=== PATIENT | male | born 1970 | race Caucasian/White ===

== ENCOUNTER → 2018-01-30 | Outpatient (CLI) | payer OTHER ==
[~2018-01-30] MED LIST: FARXIGA PO; IOPAMIDOL 370 MG/ML 200 ML INFUS..BTL INJ ONE; LIPITOR20 MG PO; LISINOPRIL-HCT1 EACH PO; LISINOPRIL/HCTZ PO; METOPROLOL TART50 MG PO; SODIUM CHLORIDE 0.9% 50ML 50 ML ONE
[2018-01-30 11:39] LABS: BLOOD UREA NITROGEN 22 mg/dL (7-26); BUN/CREATININE RATIO 23 (6-25); CREATININE, SERUM 0.96 mg/dL (0.72-1.25); EST GLOMERULAR FILTRATION RATE > 60 ML/MIN (60-)
--- NOTE | 2018-01-30 13:07 | Diagnostic Imaging Report ---
PROCEDURE: CT ABDOMEN AND PELVIS WITH CONTRAST TECHNIQUE: The abdomen and pelvis were scanned utilizing a multidetector helical scanner from the diaphragm to the lesser trochanter after the IV administration of 100 cc of Isovue 370 and the oral administration of water. Coronal and sagittal multiplanar reformations were obtained. COMPARISON: None. INDICATIONS: UPPER ABD PAIN FINDINGS: LOWER THORAX: Unremarkable. HEPATOBILIARY: 1.1 x 1.1 cm low density simple cyst in hepatic segment VII at the dome (series 2 image 13). No other focal lesions. No biliary ductal dilation. Gallbladder is unremarkable. SPLEEN: No splenomegaly. PANCREAS: Normal pancreatic parenchymal enhancement. No peripancreatic inflammatory changes, free fluid or fluid collections. No focal lesions or ductal dilation. ADRENALS: No adrenal nodules. KIDNEYS/URETERS: No hydronephrosis, stones, or solid mass lesions. PELVIC ORGANS/BLADDER: Bladder and prostate are unremarkable. PERITONEUM / RETROPERITONEUM: Trace to small perihepatic and perisplenic ascites (series 2, image 19). Small amount of free fluid in the pelvis (for example series 2, image 87). LYMPH NODES: No lymphadenopathy. VESSELS: Unremarkable. GI TRACT: Multiple loops of jejunum and proximal ileum show mild to moderate dilation, with maximal diameter of 4.4 cm (for example, coronal image 44 and series 2, image 41). A transition point to decompressed bowel is noted in the mid ileum (coronal image 63 and sagittal image 84). No focal mass or wall thickening is noted At this location. The rest of the mid and distal small bowel as well the large bowel are decompressed. Questionable wall of the mid-distal ileum. Moderate associated mesenteric stranding and small amount of fluid in the mesenteric leaves. Moderate stranding with mild nodularity of the omentum (for example series 2, image 52). Stomach is unremarkable. BONES AND SOFT TISSUES: No aggressive lytic lesion. Soft tissues are grossly unremarkable. IMPRESSION: 1. Multiple loops of mild to moderately dilated jejunum and proximal ileum, with transition point in the mid ileum to normal-caliber bowel, with associated mesenteric stranding and small amount of mesenteric free fluid and ascites. Findings suggestive of enteritis, which may be infectious or inflammatory (including inflammatory bowel disease such as Crohn's). No prior surgical history to suggest adhesions. The large bowel is grossly unremarkable, without dilation, wall thickening or associated stranding. 2. Moderate stranding and mild nodularity of the omentum. This may be secondary to omental edema and inflammation from adjacent bowel loops. Neoplastic peritoneal disease may have similar appearance, and could be considered if there is prior history of primary neoplasm. 3. No CT evidence of pancreatitis. 4. Findings discussed with Dr. Juan Melgoza January 30, 2018 at 1240 hrs. Roe Candelario M.D. Dictated by: Roe Candelario M.D. on 01/30/2018 at 13:07 Electronically approved by: Roe Candelario M.D. on 01/30/2018 at 13:07
== END ==
LOC: CT 10:38
PROVIDERS: ATTEND Family Medicine
DX: R10.84 Generalized abdominal pain (principal)
CPT/HCPCS: 36415; 74177; 82565; 84520; Q9967

== ENCOUNTER → 2018-02-02 | Day surgery (SDC) | payer OTHER ==
[2018-02-01 15:15] LABS: BASOPHILS % 0.4 % (0.0-1.0); EOSINOPHILS # (AUTO) 0.1 (0.0-0.4); HEMATOCRIT 43.8 % (38.2-49.6); LYMPHOCYTES # (AUTO) 1.5 (1.0-3.2); LYMPHOCYTES % 15.6 % (18.0-39.1); MEAN CORPUSCULAR HEMOGLOBIN 29.4 pg (28-32); MEAN CORPUSCULAR HGB CONC 34.2 g/dL (31-35); MEAN CORPUSCULAR VOLUME 85.7 fL (81-99); MONOCYTES # (AUTO) 0.8 (0.2-0.8); MONOCYTES % 7.7 % (4.4-11.3); NEUTROPHILS # (AUTO) 7.4 (2.1-6.9); PLATELET COUNT 366 x10e3/uL (140-360); RED BLOOD COUNT 5.11 x10e6/uL (4.3-5.7); RED CELL DISTRIBUTION WIDTH 12.7 % (11.7-14.4)
--- NOTE | 2018-02-01 15:37 | Diagnostic Imaging Report ---
PROCEDURE: Frontal and lateral views of the chest. COMPARISON: None. INDICATIONS: PRE OPERATIVE CHEST X-RAY FOR COLONOSCOPY, EGD FINDINGS: Lines/tubes: None. Lungs: The lungs are well inflated and clear. There is no evidence of pneumonia or pulmonary edema. Pleura: There is no pleural effusion or pneumothorax. Heart and mediastinum: The heart and the mediastinum are normal. Bones: No acute bony abnormality. IMPRESSION: 1. No acute cardiopulmonary abnormalities. Roe Candelario M.D. Dictated by: Roe Candelario M.D. on 02/01/2018 at 15:37 Electronically approved by: Roe Candelario M.D. on 02/01/2018 at 15:37
[2018-02-01 15:41] LABS: ALANINE AMINOTRANSFERASE 33 IU/L (0-55); ALBUMIN 3.9 g/dL (3.5-5.0); ALKALINE PHOSPHATASE 51 IU/L (40-150); ANION GAP 18.8 mmol/L (8-16); BLOOD UREA NITROGEN 16 mg/dL (7-26); BUN/CREATININE RATIO 18 (6-25); CALCIUM 9.5 mg/dL (8.4-10.2); CARBON DIOXIDE 24 mmol/L (22-29); CHLORIDE 92 mmol/L (98-107); CREATININE, SERUM 0.87 mg/dL (0.72-1.25); EST GLOMERULAR FILTRATION RATE > 60 ML/MIN (60-); GLUCOSE 82 mg/dL (74-118); POTASSIUM 3.8 mmol/L (3.5-5.1); SODIUM 131 mmol/L (136-145)
[~2018-02-02] MED LIST changes: +FENTANYL CITRATE/PF 100MCG/2 ML INJ ONE; -IOPAMIDOL 370 MG/ML 200 ML INFUS..BTL INJ ONE; +MIDAZOLAM HCL 2 MG/2 ML VIAL ONE; +PROPOFOL IV EMULSION 10 MG/ML 20 ML VIAL ONE; -SODIUM CHLORIDE 0.9% 50ML 50 ML ONE
--- OUTSIDE RECORDS SUMMARY | 2018-02-02 10:18 | XMS REPORT ---
Author Author [facility] Address Unknown Phone Unavailable Care Team Providers Care [place] Clerk Name Role Phone RAE SANCHEZ Unavailable Unavailable MERVAT MELGOZA Unavailable Unavailable Problems This patient has no known problems. Allergies, Adverse Reactions, Alerts This patient has no known allergies or adverse reactions. Medications This patient has no known medications. Results Test Description Test Time Test Comments Text Results Atomic Results Result Comments CHEST 2 VIEWS [place] [address] Patient Name: MERVAT CAO MR #: [id number] : 1970 Age/Sex: 47/M Req #: [id number] [facility] Physician: Ordered by: RAE SANCHEZ MD Report #: [id number] Location: OR Room/Bed: Procedure: [id number] DX/CHEST 2 VIEWS Exam Date: 02/01/18 Exam Time : 1500 REPORT STATUS: Signed PROCEDURE: Frontal and lateral views of the chest. COMPARISON: None. INDICATIONS: PRE OPERATIVE CHEST X- RAY FOR COLONOSCOPY, EGD FINDINGS: Lines/tubes: None. Lungs: The lungs are well inflated and clear. There is no evidence of pneumonia or pulmonary edema. Pleura: There is no pleural effusion or pneumothorax. Heart and mediastinum: The heart and the mediastinum are normal. Bones: No acute bony abnormality. IMPRESSION: 1. No acute cardiopulmonary abnormalities. Jovani Candelario M.D. Dictated by: Jovani Candelario M.D. on 02/01/2018 at 15:37 Electronically approved by: Jovani Candelario M.D. on 02/01/2018 at 15:37 Dictated By: JOVANI CANDELARIO MD 36 Transcribed By: YOSI on 02/01/181536 COPY TO: RAE SANCHEZ MD CT ABDOMEN/PELVIS W [place] [address] Patient Name: MERVAT CAO MR #: [id number] : 1970 Age/Sex: 47/M Req #: [id number] Adm Physician: Ordered by: MELGOZA ANDREW DO Report #: [id number] Location: CT Room/Bed: Procedure: [id number] CT/CT ABDOMEN/PELVIS W Exam Date: 01/30/18 Exam Time: 1200 REPORT STATUS: Signed PROCEDURE: CT ABDOMEN AND PELVIS WITH CONTRAST TECHNIQUE: The abdomen and pelvis were scanned utilizing a multidetector helical scanner from the diaphragm to the lesser trochanter after the IV administration of 100 cc of Isovue 370 and the oral administration of water. Coronal and sagittal multiplanar reformations were obtained. COMPARISON: None. INDICATIONS: UPPER ABD PAIN FINDINGS: LOWER THORAX: Unremarkable. HEPATOBILIARY: 1.1 x 1.1 cm low density simple cyst in hepatic segment VII at the dome (series 2 image 13). No other focal lesions. No biliary ductal dilation. Gallbladder is unremarkable. SPLEEN: No splenomegaly. PANCREAS: Normal pancreatic parenchymal enhancement. No peripancreatic inflammatory changes, free fluid or fluid collections. No focal lesions or ductal dilation. ADRENALS: No adrenal nodules. KIDNEYS/URETERS: No hydronephrosis, stones, or solid mass lesions. PELVIC ORGANS/BLADDER: Bladder and prostate are unremarkable. PERITONEUM / RETROPERITONEUM: Trace to small perihepatic and perisplenic ascites (series 2, image 19). Small amount of free fluid in the pelvis (for example series 2, image 87). LYMPH NODES: No lymphadenopathy. VESSELS: Unremarkable. GI TRACT: Multiple loops of jejunum and proximal ileum show mild to moderate dilation, with maximal diameter of 4.4 cm (for example, coronal image 44 and series 2, image 41). A transition point to decompressed bowel is noted in the mid ileum (coronal image 63 and sagittal image 84). No focal mass or wall thickening is noted At this location. The rest of the mid and distal small bowel as well the large bowel are decompressed. Questionable wall of the mid-distal ileum. Moderate associated mesenteric stranding and small amount of fluid in the mesenteric leaves. Moderate stranding with mild nodularity of the omentum (for example series 2, image 52 ). Stomach is unremarkable. BONES AND SOFT TISSUES: No aggressive lytic lesion. Soft tissues are grossly unremarkable. IMPRESSION: 1. Multiple loops of mild to moderately dilated jejunum and proximal ileum, with transition point in the mid ileum to normal-caliber bowel, with associated mesenteric stranding and small amount of mesenteric free fluid and ascites. Findings suggestive of enteritis, which may be infectious or inflammatory (including inflammatory bowel disease such as Crohn's). No prior surgical history to suggest adhesions. The large bowel is grossly unremarkable, without dilation, wall thickening or associated stranding. 2. Moderate stranding and mild nodularity of the omentum. This may be secondary to omental edema and inflammation from adjacent bowel loops. Neoplastic peritoneal disease may have similar appearance, and could be considered if there is prior history of primary neoplasm. 3. No CT evidence of pancreatitis. 4. Findings discussed with Dr. Juan Melgoza January 30, 2018 at 1240 hrs. Jovani Candelario M.D. Dictated by: Jovani Candelario M.D. on 01/30/2018 at 13:07 Electronically approved by: Jovani Candelario M.D. on 01/30/2018 at 13:07 Dictated By: JOVANI CANDELARIO MD 1302 Transcribed By: YOSI on 01/30/18 1309 COPY TO: MERVAT MELGOZA DO
== END | disposition home or self-care (01) ==
LOC: OR 10:16
PROVIDERS: ATTEND Surgery
DX: K29.70 Gastritis, unspecified, without bleeding (principal); R19.09 Other intra-abdominal and pelvic swelling, mass and lump; K57.30 Diverticulosis of large intestine without perforation or abscess without bleeding; E11.9 Type 2 diabetes mellitus without complications; I10 Essential (primary) hypertension; Z01.810 Encounter for preprocedural cardiovascular examination; Z01.812 Encounter for preprocedural laboratory examination; Z01.818 Encounter for other preprocedural examination
CPT/HCPCS: 36415 ×2; 43239; 45380; 71046; 80053; 82378; 82948; 85025; 86301; 88305; 88312; 88342; 93005; J2250